=== PATIENT | female | born 1960 | race Two or more races ===

== ENCOUNTER → 2025-01-21 | Outpatient (CLI) | payer MEDICARE, MEDICAID, SELFPAY ==
--- NOTE | 2025-01-21 10:30 | XR_ITS ---
Examination: CT right knee, without contrast. 2-D sagittal reconstructions. 2-D coronal reconstructions. 3-D reconstructions. Date and time of exam: January 21, 2025, 10:42 a.m. INDICATIONS: Right knee pain and swelling beginning 7 months ago, surgery 6 years ago CTDI: vol (mGy): 8.30 DLP: (mGycm): 221 Technique: Multiple 1.25 mm axial sections of the right knee have been obtained. 2-D sagittal and coronal reconstructions have been obtained. 3-D reconstructions have been obtained. Low dose protocols were performed. One or more of the following dose reduction techniques were used; automated exposure control, adjustment of the mA and/or KV according to patient size, use of iterative reconstruction technique. Findings: Total right knee arthroplasty. Satisfactory alignment. No loosening of the prosthetic components. No fracture Moderate complex knee effusion No ossified joint bodies IMPRESSION: Total right knee arthroplasty with satisfactory alignment Moderate complex knee effusion, consider ultrasound-guided aspiration of this knee effusion for culture and sensitivity
== END | disposition home or self-care (01) ==
PROVIDERS: PCP Physician Assistant Medical; Referring Provider Physician Assistant Medical; Visit Provider Physician Assistant Medical
DX: M25.461 Effusion, right knee (principal); Z96.653 Presence of artificial knee joint, bilateral
CPT/HCPCS: 73700